=== PATIENT | male | born 1960 | race Caucasian/White ===

== ENCOUNTER 2016-09-01 13:55 | Emergency (ER) | payer OTHER ==
--- NOTE | 2016-09-01 14:54 | ER Document Report ---
ED Medical Screen (RME) - General Chief Complaint: Flank Pain Stated Complaint: RIGHT SIDE FLANK PAIN Mode of Arrival: Ambulatory Information source: Patient TRAVEL OUTSIDE OF THE [place] IN LAST 30 DAYS: No - HPI Onset: Last week Onset/Duration: Gradual Quality of pain: Achy, Burning Severity: Mild Associated Symptoms: denies: Chills, Dysuria, Fever, Nausea Exacerbated by: Denies Relieved by: Denies Similar symptoms previously: No Recently seen / treated by doctor: No - Related Data Smoking: Non-smoker Frequency of alcohol use: Occasional Drug Abuse: None Allergies/Adverse Reactions: Sulfa (Sulfonamide Antibiotics) Allergy (Verified 09/01/16 14:41) Past Medical History - General Information source: Patient - Social History Cigarette use (# per day): No Chew tobacco use (# tins/day): No Frequency of alcohol use: Occasional Drug Abuse: None Lives with: Spouse/Significant other Family history: None - Past Medical History Cardiac Medical History: Reports: Hx Hypertension Pulmonary Medical History: Reports: Hx Sleep Apnea Endocrine Medical History: Reports: Other - HYPOTESTOSTERONISM Renal/ Medical History: Denies: Hx Peritoneal Dialysis GI Medical History: Reports: Hx Diverticulitis Musculoskeltal Medical History: Reports Hx Arthritis Psychiatric Medical History: Denies: Hx Depression Past Surgical History: Reports: Hx Nose Surgery - Multiple sinus surgeries, Hx Oral Surgery - Multiple jaw surgeries to correct his bite - Immunizations Immunizations up to date: Yes Review of Systems - Review of Systems Constitutional: denies: Chills, Fever EENT: No symptoms reported Cardiovascular: No symptoms reported Respiratory: No symptoms reported Genitourinary: See HPI Physical Exam - Vital signs Vitals: Temp Pulse Resp BP Pulse Ox 98.3 F 65 18 125/69 98 09/01/16 13:59 09/01/16 13:59 09/01/16 13:59 09/01/16 13:59 09/01/16 13:59 Interpretation: Normal - General General appearance: Appears well, Alert In distress: None - HEENT Head: Normocephalic Eyes: Normal Ears: Normal Nasal: Normal Mouth/Lips: Normal Mucous membranes: Normal - Respiratory Respiratory status: No respiratory distress - Abdominal Inspection: Obese - Back Back: Normal. No: CVA tenderness Course - Vital Signs Vital signs: Temp Pulse Resp BP Pulse Ox 98.3 F 65 18 125/69 98 09/01/16 13:59 09/01/16 13:59 09/01/16 13:59 09/01/16 13:59 09/01/16 13:59
--- NOTE | 2016-09-01 15:52 | ER Document Report ---
ED General - General Chief Complaint: Flank Pain Stated Complaint: RIGHT SIDE FLANK PAIN Time seen by provider: 15:49 Mode of Arrival: Ambulatory Information source: Patient Notes: 55-year-old male with one-week history of intermittent right flank pain. He reports it is not specifically associated with movement exertion or eating. He reports occasional dysuria for the past week as well. He denies nausea, vomiting, cough, shortness breath, chest pain, abdominal pain, or hematuria. He reports no prior history of symptoms like this. He denies any history of injury. Denies any pain to the left back. Physical Exam: General: Alert, appears well. HEENT: Normocephalic. Atraumatic. PERRLA. Extraocular movements intact. Oropharynx clear. Neck: Supple. Non-tender. Respiratory: No respiratory distress. Clear and equal breath sounds bilaterally. Cardiovascular: Regular rate and rhythm. Abdominal: Normal Inspection. Soft, non-tender. No distension. Normal Bowel Sounds. normal male testes ongoing uncircumcised no discharge no lesions minimal discomfort palpation in the right perineal area but testicle and epididymis are nontender Back: Nontender to palpation palpation right CVA area localizes but doesn't reproduce patient's pain Extremities all is warm to plus pulses of cyanosis no edema Neurological speech clear mentation normal moves all extremities well Psychological: Normal affect. Normal Mood. Skin: Warm. Dry. Normal color. TRAVEL OUTSIDE OF THE [place] IN LAST 30 DAYS: No - Related Data Allergies/Adverse Reactions: Sulfa (Sulfonamide Antibiotics) Allergy (Verified 09/01/16 14:41) Past Medical History - General Information source: Patient - Social History Smoking Status: Never Smoker Cigarette use (# per day): No Chew tobacco use (# tins/day): No Frequency of alcohol use: Occasional Drug Abuse: None Lives with: Spouse/Significant other Family History: Other - Does not know patient adopted Patient has suicidal ideation: No Patient has homicidal ideation: No - Past Medical History Cardiac Medical History: Reports: Hx Hypertension Pulmonary Medical History: Reports: Hx Sleep Apnea Endocrine Medical History: Reports: Other - HYPOTESTOSTERONISM Renal/ Medical History: Denies: Hx Peritoneal Dialysis GI Medical History: Reports: Hx Diverticulitis Musculoskeltal Medical History: Reports Hx Arthritis Psychiatric Medical History: Denies: Hx Depression Past Surgical History: Reports: Hx Nose Surgery - Multiple sinus surgeries, Hx Oral Surgery - Multiple jaw surgeries to correct his bite, Other - Multiple hernia surgeries - Immunizations Immunizations up to date: Yes Review of Systems - Review of Systems Constitutional: denies: Chills, Fever EENT: denies: Ear pain, Nose pain, Throat pain Cardiovascular: denies: Chest pain, Dyspnea, Syncope Respiratory: denies: Cough, Short of breath Gastrointestinal: denies: Abdominal pain, Diarrhea, Nausea, Vomiting, Blood in vomit, Black stools, Rectal bleeding Genitourinary: See HPI Musculoskeletal: See HPI Skin: denies: Rash Hematologic/Lymphatic: denies: Swollen glands Neurological/Psychological: denies: Weakness, Numbness Physical Exam - Vital signs Vitals: Temp Pulse Resp BP Pulse Ox 98.3 F 65 18 125/69 98 09/01/16 13:59 09/01/16 13:59 09/01/16 13:59 09/01/16 13:59 09/01/16 13:59 Course - Re-evaluation Re-evalutation: 09/01/16 17:05 Reevaluation shows patient have a benign abdominal exam and has continued have intermittent pain in the right CVA area. On further discussion with the patient he reports that he had a sensation few days ago of discomfort in his right flank associated with the nurse have a bowel movement. He does reported in the past she's had 2 episodes of diverticulitis requiring admission with IV antibiotics for those presentations were associated with severe abdominal pain and he is not feeling that now. Given his CT findings I'm inclined to think that his back pain may actually be referred pain from a mild diverticulitis as a workup for kidney stones and UTIs negative and he has not reported any particular discomfort with exertion or movement. It is also not reproducible with movement or palpation. We did not obtain blood work on this patient I don't believe that that would change his management and is comfortable with discharge without that being done. We'll prescribe Cipro and Flagyl and ask him to follow with his physician at the [facility] within 1 week for recheck. I emphasized to the patient that should he begin to run a fever, have vomiting, or develop worse back pain or abdominal pain that this would indicate a failure of outpatient treatment and may require admission for IV antibiotics and he should return to emergency department. Also emphasized that this is a provisional diagnosis is a CT findings were equivocal however given his prior history I do believe that this warrants treatment with antibiotics - Vital Signs Vital signs: Temp Pulse Resp BP Pulse Ox 98.3 F 65 18 125/69 98 09/01/16 14:04 09/01/16 14:02 09/01/16 14:02 09/01/16 14:02 09/01/16 14:02 - Laboratory Laboratory results interpreted by me: Urinalysis negative - Diagnostic Test Radiology reviewed: Image reviewed, Reports reviewed Discharge - Discharge Clinical Impression: Diverticulitis Qualifiers: Diverticulitis site: unspecified part of intestinal tract Diverticulitis bleeding: without bleeding Diverticulitis complication: without perforation or abscess Qualified Code(s): K57.92 - Diverticulitis of intestine, part unspecified, without perforation or abscess without bleeding Condition: Stable Disposition: HOME, SELF-CARE Additional Instructions: Diverticulitis You have been diagnosed as having diverticulitis. This is an inflammation of a small pouch attached to the colon, called a diverticulum. Many of these small pouches can form on the colon as you get older. They are often caused by constipation. When inflamed or infected, symptoms arise -- usually abdominal pain, constipation or diarrhea, fever, and blood in the stool. Severe diverticulitis may require hospitalization. More mild cases are usually treated with antibiotics and clear liquid diet. As you improve, a diet low in residue (one which forms little stool) is prescribed. When you are better, you should eat a high-fiber diet. Stool softeners ( like Metamucil) are usually recommended. Call the doctor or go to the hospital if there is increasing pain, vomiting , high fever, large amounts of blood passed, or if bowel movements cease. Return to emergency department for temperature over 100.4, vomiting, worse pain in back or abdomen or other problems Prescriptions: RX: Ciprofloxacin HCl [Cipro 500 mg Tablet] 500 mg PO BID #28 tablet Metronidazole [Flagyl 500 mg Tablet] 500 mg PO Q6H #56 tablet Referrals: [facility] [Provider Group] - Follow up in 3-5 days
[2016-09-01 16:02] LABS: APPEARANCE,URINE CLEAR; BILIRUBIN,URINE NEGATIVE (NEGATIVE); GLUCOSE, URINE NEGATIVE (NEGATIVE); KETONES,URINE NEGATIVE (NEGATIVE); LEUKOCYTE ESTERASE,URINE NEGATIVE (NEGATIVE); NITRITE,URINE NEGATIVE (NEGATIVE); PROTEIN,URINE NEGATIVE (NEGATIVE); URINE SPECIFIC GRAVITY 1.005; UROBILINOGEN,URINE NEGATIVE mg/dL (<2.0)
[2016-09-01 17:19] VITALS: BP 129/64
== END 2016-09-01 17:19 | disposition home or self-care (01) ==
LOC: ER 13:55
DX: K57.92 Diverticulitis of intestine, part unspecified, without perforation or abscess without bleeding (principal); R30.0 Dysuria; R10.9 Unspecified abdominal pain; I10 Essential (primary) hypertension; Z88.2 Allergy status to sulfonamides
CPT/HCPCS: 76380; 81001; 99284

== ENCOUNTER 2016-11-20 21:21 | Inpatient (IN) | payer OTHER ==
[2016-11-20] MEDS ORDERED: NORMAL SALINE 1000 ML 1,000 ML IV PRN (22:21)
[2016-11-20] MEDS ORDERED: DIPHENHYDRAMINE HCL 50 MG/ML VIAL IV ONE (22:21)
[2016-11-20] MEDS ORDERED: ONDANSETRON HCL INJ/PF 4 MG/2 ML SDV IV ONE (22:21)
[2016-11-20] MEDS ORDERED: FAMOTIDINE INJ/PF 20 MG/2 ML SDV IV ONE (22:21)
[2016-11-20] MEDS ORDERED: METHYLPREDNISOLONE INJ 125 MG/2 ML SDV IV ONE (22:21)
--- NOTE | 2016-11-20 22:21 | ER Document Report ---
ED GI/ - General Chief Complaint: Vomiting/Diarrhea Stated Complaint: DIFFICULTY BREATHING/DIARRHEA/HIVES Time Seen by Provider: 11/20/16 22:14 Mode of Arrival: Ambulatory Information source: Patient TRAVEL OUTSIDE OF THE [place] IN LAST 30 DAYS: No - HPI Patient complains to provider of: Abdominal pain, Diarrhea Onset: This afternoon Timing/Duration: Sudden Quality of pain: Achy, Cramping Severity at maximum: Moderate Severity in ED: Moderate Associated symptoms: Diarrhea, Nausea, Vomiting Similar symptoms previously: No Recently seen / treated by doctor: No Notes: 11/21/16 05:30 Patient is a 56-year-old male with a history of hypertension and diverticulitis , who presents to the emergency room complaining of diffuse abdominal pain and cramping with nausea, vomiting and diarrhea that started around 1:00 in the morning, he is also developed an itchy erythematous raised rash, he reports pain on the right flank and the left lower quadrant, he denies a history of previous rash, however has been diagnosed with diverticulitis in the past, no sick contacts, no new foods, lotions, detergents, no new medications, no recent antibiotic - Related Data Allergies/Adverse Reactions: lisinopril Allergy (Severe, Verified 11/21/16 04:49) Angioneurotic Edema Sulfa (Sulfonamide Antibiotics) Allergy (Verified 11/20/16 21:41) Past Medical History - General Information source: Patient - Social History Smoking Status: Never Smoker Family History: Other - Does not know patient adopted - Past Medical History Cardiac Medical History: Reports: Hx Hypertension Pulmonary Medical History: Reports: Hx Sleep Apnea Renal/ Medical History: Denies: Hx Peritoneal Dialysis GI Medical History: Reports: Hx Diverticulitis Musculoskeltal Medical History: Reports Hx Arthritis Psychiatric Medical History: Denies: Hx Depression Past Surgical History: Reports: Hx Nose Surgery - Multiple sinus surgeries, Hx Oral Surgery - Multiple jaw surgeries to correct his bite, Other - Multiple hernia surgeries - Immunizations Immunizations up to date: Yes Review of Systems - Review of Systems Constitutional: No symptoms reported EENT: No symptoms reported Cardiovascular: No symptoms reported Respiratory: Short of breath Gastrointestinal: See HPI Genitourinary: No symptoms reported Male Genitourinary: No symptoms reported Musculoskeletal: No symptoms reported Skin: Rash Hematologic/Lymphatic: No symptoms reported Neurological/Psychological: No symptoms reported -: Yes All other systems reviewed and negative Physical Exam - Vital signs Vitals: Temp Pulse BP Pulse Ox 97.6 F 124 H 136/94 H 97 11/20/16 21:38 11/20/16 21:38 11/20/16 21:38 11/20/16 21:38 Interpretation: Tachycardic - General General appearance: Alert In distress: None - HEENT Head: Normocephalic, Atraumatic Eyes: Normal Conjunctiva: Normal Extraocular movements intact: Yes Eyelashes: Normal Pupils: PERRL Pharynx: Normal Neck: Normal - Respiratory Respiratory status: No respiratory distress Chest status: Nontender Breath sounds: Normal Chest palpation: Normal - Cardiovascular Rhythm: Regular, Tachycardia Heart sounds: Normal auscultation Murmur: No - Abdominal Inspection: Obese Distension: Distended Bowel sounds: Normal Tenderness: Nontender Organomegaly: No organomegaly - Back Back: Normal, Nontender - Extremities General upper extremity: Normal inspection, Nontender, Normal color, Normal ROM , Normal temperature General lower extremity: Normal inspection, Nontender, Normal color, Normal ROM , Normal temperature, Normal weight bearing. No: Gregor's sign - Neurological Neuro grossly intact: Yes Cognition: Normal Orientation: AAOx4 Frieda Coma Scale Eye Opening: Spontaneous [place] Coma Scale Verbal: Oriented Frieda Coma Scale Motor: Obeys Commands Frieda Coma Scale Total: 15 Speech: Normal Motor strength normal: LUE, RUE, LLE, RLE Sensory: Normal - Psychological Associated symptoms: Normal affect, Normal mood - Skin Skin Temperature: Warm Skin Moisture: Dry Skin Color: Normal Location of irregularity: Generalized Character of irregularity: Erythematous, Urticarial Course - Re-evaluation Re-evalutation: 11/21/16 05:34 Patient continues to have periods of tachycardia, as leukocytosis is significant , however I am unable to identify the source, as patient's chest x-ray is clear , CT of the abdomen and pelvis is without acute findings and urinalysis is without of an infection, therefore patient was discussed with the hospitalist who agrees to admit for further evaluation and treatment, he has been covered with broad-spectrum antibiotics at this point in time and has been given multiple liters of IV fluid - Vital Signs Vital signs: Temp Pulse Resp BP Pulse Ox 97.6 F 124 H 23 H 127/69 H 96 11/20/16 21:38 11/20/16 21:38 11/21/16 05:01 11/21/16 05:01 11/21/16 05:01 - Laboratory Result Diagrams: 11/20/16 23:00 11/20/16 23:00 Laboratory results interpreted by me: 11/20/16 11/20/16 11/21/16 23:00 23:00 02:17 WBC 21.1 H RBC 6.34 H Hgb 18.5 H Hct 55.5 H Seg Neuts % (Manual) 83 H Lymphocytes % (Manual) 8 L Abs Neuts (Manual) 18.1 H BUN 23 H Glucose 222 H Urine Protein 100 H - Diagnostic Test Radiology reviewed: Image reviewed, Reports reviewed Discharge - Discharge Clinical Impression: Nausea vomiting and diarrhea, Tachycardia, Urticaria Leukocytosis Qualifiers: Leukocytosis type: bandemia Qualified Code(s): D72.825 - Bandemia Condition: Fair Disposition: ADMITTED INPATIENT Admitting Provider: Hospitalist Unit Admitted: Telemetry
[2016-11-20 23:21] LABS: HEMATOCRIT 55.5 % (37.9-51.0); HEMOGLOBIN 18.5 g/dL (13.5-17.0); MEAN CORPUSCULAR HEMOGLOBIN 29.2 pg (27.0-33.4); MEAN CORPUSCULAR HGB CONC 33.4 g/dL (32.0-36.0); MEAN CORPUSCULAR VOLUME 88 fl (80-97); RED BLOOD COUNT 6.34 10^6/uL (4.35-5.55); RED CELL DISTRIBUTION WIDTH 13.9 % (11.5-14.0); WHITE BLOOD COUNT 21.1 10^3/uL (4.0-10.5)
[2016-11-20 23:30] LABS: ALANINE AMINOTRANSFERASE 37 U/L (21-72); ALBUMIN 4.3 g/dL (3.5-5.0); ALKALINE PHOSPHATASE 67 U/L (38-126); ANION GAP 16 (5-19); ASPARTATE AMINO TRANSFERASE 18 U/L (17-59); BILIRUBIN,DIRECT 0.3 mg/dL (0.0-0.4); BILIRUBIN,TOTAL 0.8 mg/dL (0.2-1.3); BLOOD UREA NITROGEN 23 mg/dL (7-20); CALCIUM 9.1 mg/dL (8.4-10.2); CARBON DIOXIDE 23 mmol/L (22-30); CHLORIDE 100 mmol/L (98-107); GLUCOSE 222 mg/dL (75-110); LIPASE 40.8 U/L (23-300); POTASSIUM 4.7 mmol/L (3.6-5.0); SODIUM 138.6 mmol/L (137-145); TOTAL PROTEIN 7.6 g/dL (6.3-8.2)
[2016-11-20 23:50] LABS: BAND NEUTROPHILS % (MANUAL) 3 % (3-5); BASOPHILS % (MANUAL) 0 % (0-2); EOSINOPHILS % (MANUAL) 2 % (0-6); LYMPHOCYTES % (MANUAL) 8 % (13-45); TOTAL CELLS COUNTED 100; TOXIC GRANULATION SLIGHT
[2016-11-20 23:51] LABS: RBC MORPHOLOGY COMMENT NORMO-CYTIC/CHROMIC
--- NOTE | 2016-11-21 00:16 | RADIOLOGY REPORT (SQ) ---
EXAM DESCRIPTION: CT ABD/PELVIS WITH IV ONLY COMPLETED DATE/TIME: 11/21/2016 12:05 am REASON FOR STUDY: LLQ pain COMPARISON: None. TECHNIQUE: CT scan of the abdomen and pelvis performed using helical scanning technique with dynamic intravenous contrast injection. No oral contrast. Images reviewed with lung, soft tissue, and bone windows. Reconstructed coronal and sagittal MPR images reviewed. Delayed images for evaluation of the urinary system also acquired. All images stored on PACS. All CT scanners at this facility use dose modulation, iterative reconstruction, and/or weight based d osing when appropriate to reduce radiation dose to as low as reasonably achievable (ALARA). [facility]: Dose Right [facility]: CareDose [facility]: Dose Right [facility]: Teradose 4D [facility]: [employer] CONTRAST TYPE AND DOSE: contrast/concentration: Isovue 370.00 mg/ml; Total Contrast Delivered: 100.0 ml; Total Saline Delivered: 70.0 ml RENAL FUNCTION: Creatinine 1.1 RADIATION DOSE: Up-to-date CT equipment and radiation dose reduction techniques were employed. CTDIv ol: 20.9 - 21.1 mGy. DLP: 2436 mGy-cm.. LIMITATIONS: None. FINDINGS: LOWER CHEST: No significant findings. No nodules or infiltrates. LIVER: Normal size. No masses. No dilated ducts. SPLEEN: Normal size. No focal lesions. PANCREAS: No masses. No significant calcifications. No adjacent inflammation or peripancreatic fluid collections. Pancreatic duct not dilated. GALLBLADDER: No identified stones by CT criteria. No inflammatory changes to suggest cholecystitis. ADRENAL GLANDS: No significant masses or asymmetry. RIGHT KIDNEY AND URETER: No solid masses. No significant calcifications. No hydronephrosis or hyd roureter. LEFT KIDNEY AND URETER: No solid masses. No significant calcifications. No hydronephrosis or hydr oureter. AORTA AND VESSELS: No aneurysm. No dissection. Renal arteries, SMA, celiac without stenosis. RETROPERITONEUM: No retroperitoneal adenopathy, hemorrhage or masses. BOWEL AND PERITONEAL CAVITY: Diverticulosis. No diverticulitis. APPENDIX: Normal. PELVIS: No mass. No free fluid. Normal bladder. ABDOMINAL WALL: No masses. No hernias. BONES: No significant or acute findings. OTHER: No other significant finding. IMPRESSION: NO SIGNIFICANT OR ACUTE FINDING IN THE ABDOMEN OR PELVIS ON CT SCAN WITH IV CONTRAST. TECHNICAL DOCUMENTATION: JOB ID: [id number] Quality ID # [id number]: Final reports with documentation of one or more dose reduction techniques (e.g., Au tomated exposure control, adjustment of the mA and/or kV according to patient size, use of iterative reconstruction technique) 2010 [employer]- All Rights Reserved
[2016-11-21] MEDS ORDERED: NORMAL SALINE 1000 ML 1,000 ML IV PRN ×2 (00:39→03:13)
[2016-11-21] MEDS ORDERED: METOCLOPRAMIDE HCL INJ/PF 10 MG/2 ML SDV IV ONE (00:39)
[2016-11-21] MEDS ORDERED: FAMOTIDINE INJ/PF 20 MG/2 ML SDV IV ONE (00:53)
[2016-11-21] MEDS ORDERED: DIPHENHYDRAMINE HCL 50 MG/ML VIAL IV ONE ×2 (00:53→04:51)
[2016-11-21] MEDS ORDERED: CEFTRIAXONE INJ 1000 MG VIAL IV ONE (02:34)
[2016-11-21 02:54] LABS: APPEARANCE,URINE SLIGHTLY-CLOUDY; BILIRUBIN,URINE NEGATIVE (NEGATIVE); GLUCOSE, URINE NEGATIVE (NEGATIVE); KETONES,URINE NEGATIVE (NEGATIVE); LEUKOCYTE ESTERASE,URINE NEGATIVE (NEGATIVE); NITRITE,URINE NEGATIVE (NEGATIVE); PROTEIN,URINE 100 mg/dL (NEGATIVE); UROBILINOGEN,URINE NEGATIVE mg/dL (<2.0)
[2016-11-21 02:55] LABS: URINE SPECIFIC GRAVITY > 1.060
--- NOTE | 2016-11-21 03:30 | RADIOLOGY REPORT (SQ) ---
EXAM DESCRIPTION: CHEST SINGLE VIEW COMPLETED DATE/TIME: 11/21/2016 3:12 am REASON FOR STUDY: fever COMPARISON: 02/05/2016 EXAM PARAMETERS: NUMBER OF VIEWS: One view. TECHNIQUE: Single frontal radiographic view of the chest acquired. RADIATION DOSE: NA LIMITATIONS: None. FINDINGS: LUNGS AND PLEURA: No opacities, masses or pneumothorax. No pleural effusion. MEDIASTINUM AND HILAR STRUCTURES: No masses. Contour normal. HEART AND VASCULAR STRUCTURES: Heart normal in size. Normal vasculature. BONES: No acute findings. HARDWARE: None in the chest. OTHER: No other significant finding. IMPRESSION: NO ACUTE RADIOGRAPHIC FINDING IN THE CHEST. TECHNICAL DOCUMENTATION: JOB ID: [id number]
[2016-11-21] MEDS ORDERED: ACETAMINOPHEN 325 MG TABLET PO PRN ×2 (04:51→14:39)
[2016-11-21] MEDS ORDERED: DIPHENHYDRAMINE HCL 50 MG/ML VIAL IV PRN (04:51)
[2016-11-21] MEDS ORDERED: IPRATROPIUM/ALBUTEROL 0.5-2.5 MG/3 ML AMPUL NEB PRN (04:51)
[2016-11-21] MEDS ORDERED: METHYLPREDNISOLONE INJ 125 MG/2 ML SDV IV ONE (04:51)
--- NOTE | 2016-11-21 05:04 | PDOC H&P ---
History of Present Illness Admission Date/PCP: 11/21/16 04:43 Patient complains of: Facial swelling diffuse rash nausea vomiting diarrhea History of Present Illness: EMMY QUINTERO is a 56 year old male with a past medical history of hypertension on lisinopril who was in his usual state of health until approximately 24 prior to admission patient had the insidious onset of abdominal pain nausea vomiting diarrhea without blood or fever he also developed facial swelling and a diffuse rash she described as hives, prompting to seek evaluation emergency room where he receives Solu-Medrol, Pepcid, Benadryl resulting in resolution of symptoms. His workup is notable for tachycardia, a white blood cell count of greater than 20,000 without fever but otherwise unremarkable including negative CT abdomen and pelvis. He is referred to the hospital for admission. Patient denies any suspect meals he takes lisinopril. Past Medical History Cardiac Medical History: Reports: Hypertension Pulmonary Medical History: Reports: Sleep Apnea GI Medical History: Reports: Diverticulitis Musculoskeltal Medical History: Reports: Arthritis Psychiatric Medical History: Denies: Depression Past Surgical History Past Surgical History: Reports: Other - Multiple hernia surgeries Social History Information Source: Patient Lives with: Family, Spouse/Significant other Smoking Status: Never Smoker Frequency of Alcohol Use: None Hx Recreational Drug Use: No Hx Prescription Drug Abuse: No Family History Family History: Other - Does not know patient adopted Parental Family History Reviewed: Yes Children Family History Reviewed: Yes Sibling(s) Family History Reviewed.: Yes Medication/Allergy Home Medications: Lisinopril 40 mg PO DAILY 08/29/14 Aspirin [Aspirin EC] 81 mg PO DAILY PRN #1 pkg 08/30/14 Azithromycin [Zithromax 250 mg Tablet] 500 mg PO DAILY #6 tab 06/24/15 Hydrocodone/Acetaminophen [[place] 5-325 mg Tablet] 1 tab PO Q6HP PRN #14 tablet 06/24/15 Prednisone [Deltasone 20 mg Tablet] 3 tab PO DAILY 3 Days 06/24/15 Ciprofloxacin HCl [Cipro 500 mg Tablet] 500 mg PO BID #28 tablet 09/01/16 Metronidazole [Flagyl 500 mg Tablet] 500 mg PO Q6H #56 tablet 09/01/16 Allergies/Adverse Reactions: lisinopril Allergy (Severe, Verified 11/21/16 04:49) Angioneurotic Edema Sulfa (Sulfonamide Antibiotics) Allergy (Verified 11/20/16 21:41) Review of Systems Constitutional: ABSENT: chills, fever(s), headache(s), weight gain, weight loss Eyes: ABSENT: visual disturbances Ears: ABSENT: hearing changes Cardiovascular: ABSENT: chest pain, dyspnea on exertion, edema, orthropnea, palpitations Respiratory: ABSENT: cough, hemoptysis Gastrointestinal: ABSENT: abdominal pain, constipation, diarrhea, hematemesis, hematochezia, nausea, vomiting Genitourinary: ABSENT: dysuria, hematuria Musculoskeletal: ABSENT: joint swelling Integumentary: ABSENT: rash, wounds Neurological: ABSENT: abnormal gait, abnormal speech, confusion, dizziness, focal weakness, syncope Psychiatric: ABSENT: anxiety, depression, homidical ideation, suicidal ideation Endocrine: ABSENT: cold intolerance, heat intolerance, polydipsia, polyuria Hematologic/Lymphatic: ABSENT: easy bleeding, easy bruising Physical Exam Vital Signs: Temp Pulse Resp BP Pulse Ox 97.6 F 124 H 25 H 125/78 95 11/20/16 21:38 11/20/16 21:38 11/21/16 03:01 11/21/16 03:01 11/21/16 03:01 General appearance: PRESENT: cooperative, mild distress, morbidly obese, well- developed, well-nourished Head exam: PRESENT: atraumatic, normocephalic Eye exam: PRESENT: conjunctiva pink, EOMI, PERRLA. ABSENT: scleral icterus Ear exam: PRESENT: normal external ear exam Mouth exam: PRESENT: moist, tongue midline, other - Oral facial swelling without tongue protrusion Neck exam: ABSENT: carotid bruit, JVD, lymphadenopathy, thyromegaly Respiratory exam: PRESENT: clear to auscultation maite. ABSENT: rales, rhonchi, wheezes Cardiovascular exam: PRESENT: RRR. ABSENT: diastolic murmur, rubs, systolic murmur Pulses: PRESENT: normal dorsalis pedis pul Vascular exam: PRESENT: normal capillary refill GI/Abdominal exam: PRESENT: normal bowel sounds, soft. ABSENT: distended, guarding, mass, organolmegaly, rebound, tenderness Rectal exam: PRESENT: deferred Extremities exam: PRESENT: full ROM. ABSENT: calf tenderness, clubbing, pedal edema Neurological exam: PRESENT: alert, awake, oriented to person, oriented to place , oriented to time, oriented to situation, CN II-XII grossly intact. ABSENT: motor sensory deficit Psychiatric exam: PRESENT: appropriate affect, normal mood. ABSENT: homicidal ideation, suicidal ideation Skin exam: PRESENT: dry, erythema, intact, urticaria, warm. ABSENT: cyanosis, rash, vesicles Results Impressions: Abdomen/Pelvis CT 11/20/16 22:20 IMPRESSION: NO SIGNIFICANT OR ACUTE FINDING IN THE ABDOMEN OR PELVIS ON CT SCAN WITH IV CONTRAST. Chest X-Ray 11/21/16 03:01 IMPRESSION: NO ACUTE RADIOGRAPHIC FINDING IN THE CHEST. Assessment & Plan - Diagnosis (1) Angioedema Is this a current diagnosis for this admission?: YesPlan: Atypical presentation of lisinopril induced angioedema including oral facial swelling diffuse hives nausea vomiting and diarrhea however literature describes case reports involving intestinal symptoms. Given his lack of more probable diagnosis he is admitted with Solu-Medrol, Benadryl, Pepcid and a allergy to lisinopril. (3) Nausea vomiting and diarrhea Is this a current diagnosis for this admission?: YesPlan: Secondary to JEANETTE inhibitor angioedema. Lisinopril allergy listed symptomatic management as above (4) KHRIS (obstructive sleep apnea) Is this a current diagnosis for this admission?: YesPlan: Complicating angioedema continue treatment as above in addition to CPAP - Time Time Spent: 50 to 70 Minutes - Inpatient Certification Medical Necessity: Need Close Monitoring Due to Risk of Patient Decompensation
[2016-11-21 05:35] LABS: ABSOLUTE LYMPHOCYTES (AUTO) 0.8 10^3/uL (0.5-4.7); ABSOLUTE MONOCYTES (AUTO) 0.3 10^3/uL (0.1-1.4); ABSOLUTE NEUT (AUTO) 15.3 10^3/uL (1.7-8.2); BASOPHILS % (AUTO) 0.1 % (0-2); EOSINOPHILS % (AUTO) 0.1 % (0-6); HEMATOCRIT 48.7 % (37.9-51.0); HGB HCT DIFFERENCE 0.5; LYMPHOCYTES % (AUTO) 5.2 % (13-45); MEAN CORPUSCULAR HEMOGLOBIN 29.3 pg (27.0-33.4); MEAN CORPUSCULAR HGB CONC 33.6 g/dL (32.0-36.0); MEAN CORPUSCULAR VOLUME 87 fl (80-97); MONOCYTES % (AUTO) 1.8 % (3-13); RED BLOOD COUNT 5.57 10^6/uL (4.35-5.55); SEGMENTED NEUTROPHILS % (AUTO) 92.8 % (42-78); WHITE BLOOD COUNT 16.4 10^3/uL (4.0-10.5)
[2016-11-21 05:36] LABS: HEMOGLOBIN 16.4 g/dL (13.5-17.0)
[2016-11-21] MEDS: HEPARIN SOD (PORCINE) 5,000 UNIT/ML 1 ML SYRINGE SUBCUT SCH ×3 (06:57→21:57)
[2016-11-21] MEDS ORDERED: DEXTROSE 50%-WATER 25 GM/50 ML DISP.SYRIN IV PRN ×2 (07:48)
[2016-11-21] MEDS ORDERED: INSULIN LISPRO 100 UNIT/ML 3 ML VIAL SUBCUT PRN (07:48)
[2016-11-21] MEDS ORDERED: DEXTROSE 40% GEL 15 GM TUBE PO PRN ×2 (07:48)
[2016-11-21] MEDS ORDERED: GLUCAGON,HUMAN RECOMB 1 MG INJ IM PRN (07:48)
[2016-11-21] MEDS ORDERED: LOSARTAN POTASSIUM 50 MG TABLET PO SCH (10:00)
[2016-11-21] MEDS ORDERED: DOCUSATE SODIUM 100 MG/10 ML UDC PO SCH (10:00)
--- NOTE | 2016-11-21 10:00 | Physician Advisory Note ---
Physician Advisor ProgressNote .: [facility], I have reviewed the medical record for this patient. Physician Advisor Statement: Status: Typically, angioedema would be most appropriately brought in as Outpt Obs initially, given frequent quick improvement w/this dx. This pt w/angioedema including GI sx, felt due to JEANETTE-I. Tx'd aggressively in ED 11/20 w/"multiple liters of IVF", IV Solumedrol/Benadryl/ Pepcid, IV abx. Attending ordered Solumedrol 125mg x1 more dose, ARB, prn Duonebs, only ice chips po, tele monitoring, VS q4h, O2 2L, f/u labs through 11/22. Pt has continued to have recurrent tachycardia & tachypnea so far this AM 11/21. Has continued facial edema & redness of face & back per AM nursing eval. Today's attending has now ordered continued Solumedrol q8hrs, indicating continued need for aggressive steroid tx. Pt bears especially close monitoring given already started on ARB, given continued sx from ACEI & risk for more of same rxn to ARB as to ACEI. Appropriate for Inpt status. CK
[2016-11-21] MEDS: FAMOTIDINE INJ/PF 20 MG/2 ML SDV IV SCH (10:07)
[2016-11-21] MEDS: DOCUSATE SODIUM 100 MG CAPSULE PO SCH ×2 (10:10→16:58)
--- NOTE | 2016-11-21 12:00 | PDOC PROGRESS REPORT ---
Subjective Progress Note for:: 11/21/16 Subjective:: Continues to have rash but it is slightly improved. Physical Exam Vital Signs: Temp Pulse Resp BP Pulse Ox 97.9 F 108 H 14 102/66 94 11/21/16 06:11 11/21/16 10:07 11/21/16 10:07 11/21/16 06:11 11/21/16 10:07 Intake & Output 11/20/16 11/21/16 11/22/16 06:59 06:59 06:59 Weight 126.7 kg General appearance: PRESENT: no acute distress Eye exam: PRESENT: conjunctiva pink. ABSENT: scleral icterus Mouth exam: PRESENT: moist, tongue midline Neck exam: ABSENT: JVD Respiratory exam: PRESENT: clear to auscultation maite. ABSENT: rales, rhonchi, wheezes Cardiovascular exam: PRESENT: RRR. ABSENT: diastolic murmur, rubs, systolic murmur GI/Abdominal exam: PRESENT: normal bowel sounds, soft. ABSENT: distended, guarding, mass, organolmegaly, rebound, tenderness Extremities exam: ABSENT: calf tenderness, clubbing, pedal edema Neurological exam: PRESENT: alert, awake, oriented to person, oriented to place , oriented to time, oriented to situation, CN II-XII grossly intact. ABSENT: motor sensory deficit Psychiatric exam: PRESENT: appropriate affect Skin exam: PRESENT: other - Scattered hives on his back. He also still has a significant amount of facial edema Results Laboratory Results: 11/21/16 05:10 11/21/16 05:10 WBC 16.4 H RBC 5.57 H Hgb 16.4 D Hct 48.7 MCV 87 MCH 29.3 MCHC 33.6 RDW 14.0 Plt Count 263 Seg Neutrophils % 92.8 H Lymphocytes % 5.2 L Monocytes % 1.8 L Eosinophils % 0.1 Basophils % 0.1 Absolute Neutrophils 15.3 H Absolute Lymphocytes 0.8 Absolute Monocytes 0.3 Absolute Eosinophils 0.0 Absolute Basophils 0.0 Impressions: Abdomen/Pelvis CT 11/20/16 22:20 IMPRESSION: NO SIGNIFICANT OR ACUTE FINDING IN THE ABDOMEN OR PELVIS ON CT SCAN WITH IV CONTRAST. Chest X-Ray 11/21/16 03:01 IMPRESSION: NO ACUTE RADIOGRAPHIC FINDING IN THE CHEST. Assessment & Plan - Diagnosis (1) Angioedema Is this a current diagnosis for this admission?: YesPlan: Secondary to JEANETTE inhibitors. Patient has no evidence of airway compromise at this time however he does have a significant amount of facial swelling requiring close monitoring because of continued swelling will continue with IV steroids for 24 more hours. (2) Leukocytosis Qualifiers: Leukocytosis type: bandemia Qualified Code(s): D72.825 - Bandemia Is this a current diagnosis for this admission?: YesPlan: Likely secondary to the underlying stress. Patient has no evidence for infection. (3) Nausea vomiting and diarrhea Is this a current diagnosis for this admission?: YesPlan: Likely is related to the angioedema. It has improved. (4) HTN (hypertension) Is this a current diagnosis for this admission?: YesPlan: We will continue to monitor his blood pressure and most likely will allow his outpatient physician to choose his next antihypertensive. (5) KHRIS (obstructive sleep apnea) Is this a current diagnosis for this admission?: YesPlan: Continue with CPAP nightly - Time Time Spent with patient: 15-24 minutes - Inpatient Certification Medical Necessity: Need Close Monitoring Due to Risk of Patient Decompensation
[2016-11-21] MEDS: METHYLPREDNISOLONE INJ 40 MG/1 ML SDV IV SCH ×2 (13:41→21:57)
[2016-11-22] MEDS: DIPHENHYDRAMINE HCL 50 MG/ML VIAL IV PRN ×2 (00:07→06:20)
[2016-11-22 01:11] VITALS: BP 122/56
[2016-11-22 04:57] LABS: ABSOLUTE LYMPHOCYTES (AUTO) 1.2 10^3/uL (0.5-4.7); ABSOLUTE MONOCYTES (AUTO) 0.8 10^3/uL (0.1-1.4); ABSOLUTE NEUT (AUTO) 16.2 10^3/uL (1.7-8.2); BASOPHILS % (AUTO) 0.1 % (0-2); EOSINOPHILS % (AUTO) 0.1 % (0-6); HEMATOCRIT 40.6 % (37.9-51.0); HGB HCT DIFFERENCE 0.5; LYMPHOCYTES % (AUTO) 6.7 % (13-45); MEAN CORPUSCULAR HEMOGLOBIN 29.7 pg (27.0-33.4); MEAN CORPUSCULAR HGB CONC 33.8 g/dL (32.0-36.0); MEAN CORPUSCULAR VOLUME 88 fl (80-97); MONOCYTES % (AUTO) 4.2 % (3-13); RED BLOOD COUNT 4.62 10^6/uL (4.35-5.55); RED CELL DISTRIBUTION WIDTH 14.1 % (11.5-14.0); SEGMENTED NEUTROPHILS % (AUTO) 88.9 % (42-78); WHITE BLOOD COUNT 18.2 10^3/uL (4.0-10.5)
[2016-11-22 04:58] LABS: HEMOGLOBIN 13.7 g/dL (13.5-17.0)
[2016-11-22] MEDS: HEPARIN SOD (PORCINE) 5,000 UNIT/ML 1 ML SYRINGE SUBCUT SCH (05:06)
[2016-11-22 05:07] LABS: ANION GAP 10 (5-19); BLOOD UREA NITROGEN 21 mg/dL (7-20); CALCIUM 8.6 mg/dL (8.4-10.2); CARBON DIOXIDE 25 mmol/L (22-30); CHLORIDE 103 mmol/L (98-107); CREATININE RESULT 0.88 mg/dL (0.52-1.25); GLUCOSE 170 mg/dL (75-110); POTASSIUM 5.3 mmol/L (3.6-5.0); SODIUM 137.9 mmol/L (137-145)
[2016-11-22] MEDS: METHYLPREDNISOLONE INJ 40 MG/1 ML SDV IV SCH (05:35)
[2016-11-22] MEDS ORDERED: SODIUM POLYSTYRENE SULFONATE 15 GM/60 ML PO ONE (09:23)
[2016-11-22] MEDS: DOCUSATE SODIUM 100 MG CAPSULE PO SCH (09:35)
[2016-11-22] MEDS: FAMOTIDINE INJ/PF 20 MG/2 ML SDV IV SCH (09:41)
--- NOTE | 2016-11-22 10:25 | PDOC DISCHARGE SUMMARY ---
General - Admit/Disc Date/PCP Admission Date/Primary Care Provider: 11/21/16 04:51 Discharge Date: 11/22/16 - Discharge Diagnosis (1) Angioedema Is this a current diagnosis for this admission?: Yes (2) Nausea vomiting and diarrhea Is this a current diagnosis for this admission?: Yes (3) HTN (hypertension) Is this a current diagnosis for this admission?: Yes (4) KHRIS (obstructive sleep apnea) Is this a current diagnosis for this admission?: Yes - Additional Information Discharge Diet: Cardiac Discharge Activity: Activity As Tolerated, Balance Activity w/Rest Home Medications: Fluticasone Propionate [Flonase Nasal Eldon 50 Mcg/Eldon 16 gm] 1 spray NAREB DAILYP PRN 11/21/16 Montelukast Sodium [Singulair 10 mg Tablet] 10 mg PO DAILYP PRN 11/21/16 Testosterone [Androgel] 1 applic TD DAILY 11/21/16 Cetirizine HCl [Zyrtec 10 mg Tablet] 1 tab PO DAILY #30 tablet 11/22/16 Diphenhydramine HCl [Benadryl] 25 mg PO Q6H PRN #40 capsule 11/22/16 Methylprednisolone [Medrol Dosepack (4 mg/Tab) 21 Tab/Dosepak] 4 mg PO ASDIR PRN #21 tab.ds.pk 11/22/16 Metoprolol Tartrate [Lopressor 50 mg Tablet] 50 mg PO Q12H #60 tablet 11/22/16 Additional Information: CBC and basic metabolic panel as outpatient with primary care physician in 1 week. Return to the emergency room if symptoms recur. History of Present Illness Patient complains of: Facial swelling and rash History of Present Illness: EMMY QUINTERO is a 56 year old male with a past medical history of hypertension on lisinopril who was in his usual state of health until approximately 24 prior to admission patient had the insidious onset of abdominal pain nausea vomiting diarrhea without blood or fever he also developed facial swelling and a diffuse rash she described as hives, prompting to seek evaluation emergency room where he receives Solu-Medrol, Pepcid, Benadryl resulting in resolution of symptoms. His workup is notable for tachycardia, a white blood cell count of greater than 20,000 without fever but otherwise unremarkable including negative CT abdomen and pelvis. He is referred to the hospital for admission. Patient denies any suspect meals he takes lisinopril. For details please refer to history and physical examination performed by the admitting physician. Hospital Course Hospital Course: The patient was admitted to telemetry. The patient was started on intravenous steroids and antihistamines. Antiemetics and analgesics were given. Stool for Clostridium difficile toxin was done and it was negative. Patient was given intravenous fluid as well and the patient's hematocrit noted to drop. Stool for occult blood was positive but patient reports no melena or hematochezia. Patient reported having serial colonoscopies done outpatient 3 times showing diverticulosis and internal hemorrhoids. In terms of the patient's symptoms of swelling and rash is resolved. Patient's diarrhea and abdominal discomfort improved and eventually resolved with resolution of rash and swelling. The patient improved, wanted to go to be discharged home and follow-up as an outpatient at the [facility]. For his blood pressure his JEANETTE inhibitor was discontinued and placed on ARB but developed hyperkalemia and therefore this was discontinued as well. He was given a dose of Kayexalate. He was advised to follow-up potassium level on an outpatient basis with primary care physician. Physical Exam Vital Signs: Temp Pulse Resp BP Pulse Ox 97.5 F 87 18 122/56 L 94 11/22/16 01:00 11/22/16 09:04 11/22/16 09:04 11/22/16 01:00 11/22/16 09:04 Intake & Output 11/21/16 11/22/16 11/23/16 06:59 06:59 06:59 Intake Total 1194 Balance 1194 Weight 126.7 kg 129.2 kg General appearance: PRESENT: no acute distress, cooperative, obese Head exam: PRESENT: normocephalic Eye exam: PRESENT: EOMI Mouth exam: PRESENT: moist, neck supple Neck exam: ABSENT: JVD Respiratory exam: PRESENT: clear to auscultation maite Cardiovascular exam: PRESENT: RRR GI/Abdominal exam: PRESENT: soft. ABSENT: distended - obese, tenderness Extremities exam: PRESENT: other - trace pre-tibial edema Neurological exam: PRESENT: alert, awake, oriented to person, oriented to place , oriented to time, oriented to situation Skin exam: PRESENT: dry, warm. ABSENT: cyanosis Results Laboratory Results: 11/22/16 04:22 11/22/16 04:22 11/21/16 11/21/16 11/22/16 20:00 20:00 04:22 WBC 18.2 H RBC 4.62 Hgb 13.7 D Hct 40.6 MCV 88 MCH 29.7 MCHC 33.8 RDW 14.1 H Plt Count 222 Seg Neutrophils % 88.9 H Lymphocytes % 6.7 L Monocytes % 4.2 Eosinophils % 0.1 Basophils % 0.1 Absolute Neutrophils 16.2 H Absolute Lymphocytes 1.2 Absolute Monocytes 0.8 Absolute Eosinophils 0.0 Absolute Basophils 0.0 Sodium Potassium Chloride Carbon Dioxide Anion Gap BUN Creatinine Est GFR ( Amer) Est GFR (Non-Af Amer) Glucose Calcium Stool Occult Blood POSITIVE Stool for White Cells FEW H 11/22/16 04:22 WBC RBC Hgb Hct MCV MCH MCHC RDW Plt Count Seg Neutrophils % Lymphocytes % Monocytes % Eosinophils % Basophils % Absolute Neutrophils Absolute Lymphocytes Absolute Monocytes Absolute Eosinophils Absolute Basophils Sodium 137.9 Potassium 5.3 H Chloride 103 Carbon Dioxide 25 Anion Gap 10 BUN 21 H Creatinine 0.88 Est GFR ( Amer) > 60 Est GFR (Non-Af Amer) > 60 Glucose 170 H Calcium 8.6 Stool Occult Blood Stool for White Cells Impressions: Abdomen/Pelvis CT 11/20/16 22:20 IMPRESSION: NO SIGNIFICANT OR ACUTE FINDING IN THE ABDOMEN OR PELVIS ON CT SCAN WITH IV CONTRAST. Chest X-Ray 11/21/16 03:01 IMPRESSION: NO ACUTE RADIOGRAPHIC FINDING IN THE CHEST. Qualifiers PATEINT BEING DISCHARGED WITH ANY OF THE FOLLOWING DIAGNOSIS?: No Plan Discharge Plan: Follow-up with primary care physician in 1 week. Time Spent: Less than 30 Minutes
== END 2016-11-22 11:07 | disposition home or self-care (01) | DRG 916 ==
LOC: ER 21:21 → EH 11-21 04:43 → UNDOADMIN 11-21 04:43 → EH 11-21 04:51 → 5 11-21 06:10
PROVIDERS: ADMIT Internal Medicine; ATTEND Internal Medicine
DX: T78.3XXA Angioneurotic edema, initial encounter (principal); K57.92 Diverticulitis of intestine, part unspecified, without perforation or abscess without bleeding; I10 Essential (primary) hypertension; E87.5 Hyperkalemia; R00.0 Tachycardia, unspecified; R11.2 Nausea with vomiting, unspecified; R19.7 Diarrhea, unspecified; G47.33 Obstructive sleep apnea (adult) (pediatric); T88.7XXA Unspecified adverse effect of drug or medicament, initial encounter; T46.4X5A Adverse effect of angiotensin-converting-enzyme inhibitors, initial encounter
CPT/HCPCS: 36415; 71010; 74177; 80048; 80053; 81001; 82272; 82962; 83605; 83690; 85025; 87040; 87045; 87205; 87493; 89055; 96361; 96365; 96375; 96376; 99285; J0696; J1200; J1644; J2405; J2765; J2920; J2930; J7030; S0028

== ENCOUNTER 2017-04-17 15:58 | Emergency (ER) | payer OTHER ==
[2017-04-17 17:16] LABS: APPEARANCE,URINE CLEAR; BILIRUBIN,URINE NEGATIVE (NEGATIVE); GLUCOSE, URINE NEGATIVE (NEGATIVE); KETONES,URINE NEGATIVE (NEGATIVE); LEUKOCYTE ESTERASE,URINE NEGATIVE (NEGATIVE); NITRITE,URINE NEGATIVE (NEGATIVE); PROTEIN,URINE NEGATIVE (NEGATIVE); URINE SPECIFIC GRAVITY 1.017
[2017-04-17 17:48] LABS: ABSOLUTE BASOPHILS # (AUTO) 0.1 10^3/uL (0.0-0.2); ABSOLUTE EOSINOPHILS # (AUTO) 0.3 10^3/uL (0.0-0.6); ABSOLUTE LYMPHOCYTES (AUTO) 2.6 10^3/uL (0.5-4.7); ABSOLUTE MONOCYTES (AUTO) 0.6 10^3/uL (0.1-1.4); ABSOLUTE NEUT (AUTO) 4.1 10^3/uL (1.7-8.2); BASOPHILS % (AUTO) 1.3 % (0-2); EOSINOPHILS % (AUTO) 3.6 % (0-6); HEMATOCRIT 41.7 % (37.9-51.0); HEMOGLOBIN 14.7 g/dL (13.5-17.0); HGB HCT DIFFERENCE 2.4; LYMPHOCYTES % (AUTO) 33.7 % (13-45); MEAN CORPUSCULAR HEMOGLOBIN 29.4 pg (27.0-33.4); MEAN CORPUSCULAR HGB CONC 35.1 g/dL (32.0-36.0); MEAN CORPUSCULAR VOLUME 84 fl (80-97); RED BLOOD COUNT 4.99 10^6/uL (4.35-5.55); RED CELL DISTRIBUTION WIDTH 14.3 % (11.5-14.0); SEGMENTED NEUTROPHILS % (AUTO) 53.4 % (42-78); WHITE BLOOD COUNT 7.6 10^3/uL (4.0-10.5)
[2017-04-17 18:05] LABS: ALANINE AMINOTRANSFERASE 39 U/L (21-72); ALKALINE PHOSPHATASE 51 U/L (38-126); ANION GAP 11 (5-19); ASPARTATE AMINO TRANSFERASE 19 U/L (17-59); BILIRUBIN,DIRECT 0.1 mg/dL (0.0-0.4); BILIRUBIN,TOTAL 0.3 mg/dL (0.2-1.3); BLOOD UREA NITROGEN 18 mg/dL (7-20); CALCIUM 9.2 mg/dL (8.4-10.2); CARBON DIOXIDE 27 mmol/L (22-30); CHLORIDE 103 mmol/L (98-107); CREATININE RESULT 0.93 mg/dL (0.52-1.25); GLUCOSE 148 mg/dL (75-110); POTASSIUM 4.1 mmol/L (3.6-5.0); SODIUM 141.2 mmol/L (137-145); TOTAL PROTEIN 6.6 g/dL (6.3-8.2)
[2017-04-17] MEDS ORDERED: KETOROLAC TROMETHAMINE 60 MG/2 ML SDV IM ONE (20:48)
[2017-04-17] MEDS ORDERED: LIDOCAINE 5% (700 MG) TRANSDERMAL ADH..PATCH TP ONE (20:48)
--- NOTE | 2017-04-17 20:51 | ER Document Report ---
ED General - General Chief Complaint: Flank Pain Stated Complaint: RIGH SIDE ABDOMINAL PAIN Time Seen by Provider: 04/17/17 16:51 Notes: Patient is a 56-year-old male who presents with 6-8 months of intermittent right flank and right lower rib pain. Patient states that the symptoms are intermittent in nature but nothing seems to trigger the pain other than certain positional changes. He notes that he has not tried anything for relief of the pain. States he has had extensive evaluations for this pain including multiple CT scans of his abdomen pelvis as well as a colonoscopy and endoscopy apparently all of which have been unremarkable. Patient states that he was treated empirically for H pylori which did not improve his symptoms. At time of assessment the patient complains of a mild, dull, constant, throbbing pain to the right lower rib space. He denies any shortness of breath, pleuritic pain , abdominal pain, vomiting, diarrhea, chest pain, or syncope. TRAVEL OUTSIDE OF THE [place] IN LAST 30 DAYS: No - Related Data Allergies/Adverse Reactions: lisinopril Allergy (Severe, Verified 04/17/17 16:01) Angioneurotic Edema Sulfa (Sulfonamide Antibiotics) Allergy (Verified 04/17/17 16:01) Past Medical History - General Information source: Patient - Social History Smoking Status: Former Smoker Chew tobacco use (# tins/day): No Frequency of alcohol use: None Drug Abuse: None Lives with: Spouse/Significant other Family History: Other - Does not know patient adopted Patient has suicidal ideation: No Patient has homicidal ideation: No - Past Medical History Cardiac Medical History: Reports: Hx Hypertension Pulmonary Medical History: Reports: Hx Sleep Apnea Renal/ Medical History: Denies: Hx Peritoneal Dialysis GI Medical History: Reports: Hx Diverticulitis Musculoskeltal Medical History: Reports Hx Arthritis Psychiatric Medical History: Denies: Hx Depression Past Surgical History: Reports: Hx Nose Surgery - Multiple sinus surgeries, Hx Oral Surgery - Multiple jaw surgeries to correct his bite, Other - Multiple hernia surgeries - Immunizations Immunizations up to date: Yes Review of Systems - Review of Systems Notes: Constitutional: Negative for fever. HENT: Negative for sore throat. Eyes: Negative for visual changes. Cardiovascular: Negative for chest pain. Respiratory: Negative for shortness of breath. Gastrointestinal: Positive for right flank pain Genitourinary: Negative for dysuria. Musculoskeletal: Negative for back pain. Skin: Negative for rash. Neurological: Negative for headaches, weakness or numbness. 10 point ROS negative except as marked above and in HPI. Physical Exam - Vital signs Vitals: Temp Pulse Resp BP Pulse Ox 99.1 F 78 18 158/85 H 98 04/17/17 16:06 04/17/17 16:06 04/17/17 16:06 04/17/17 16:06 04/17/17 16:06 Interpretation: Hypertensive Notes: PHYSICAL EXAMINATION: GENERAL: Well-appearing, well-nourished and in no acute distress. HEAD: Atraumatic, normocephalic. EYES: Pupils equal round and reactive to light, extraocular movements intact, sclera anicteric, conjunctiva are normal. ENT: nares patent, oropharynx clear without exudates. Moist mucous membranes. NECK: Normal range of motion, supple without lymphadenopathy LUNGS: Breath sounds clear to auscultation bilaterally and equal. No wheezes rales or rhonchi. HEART: Regular rate and rhythm without murmurs ABDOMEN: Soft, nontender, normoactive bowel sounds. No guarding, no rebound. No masses appreciated. Back: Pain on palpation of the right mid lower ribs. No distinct CVA tenderness. EXTREMITIES: Normal range of motion, no pitting or edema. No cyanosis. NEUROLOGICAL: No focal neurological deficits. Moves all extremities spontaneously and on command. PSYCH: Normal mood, normal affect. SKIN: Warm, Dry, normal turgor, no rashes or lesions noted. Course - Re-evaluation Re-evalutation: 04/17/17 20:49 Patient presents with 6-8 months of right lower, posterior rib pain. Patient has had an extensive evaluation for this pain including multiple CTs the abdomen and pelvis, colonoscopy, endoscopy, all of which have been unremarkable. Labs here today are again unremarkable. There is no evidence of pyonephritis or nephrolithiasis on urinalysis and patient's clinical history is not consistent with either of these diagnoses. On evaluation, he has focal tenderness to the right posterior, middle lower rib spaces and his pain is worsened with palpation of the area as well as leaning in certain ways in the bed. This is highly suggestive of a musculoskeletal component and he notes that in the remote past he had multiple rib fractures in the right lower ribs. I have a very low clinical suspicion for any acute intra-abdominal pathology again given clinical history and the absence of any focal abdominal pain by complaint or exam. There is no pleuritic component to his pain he denies any shortness of breath to suggest an acute pulmonary embolus. His Wells score is 0. Will obtain chest x-ray to evaluate for any evidence of an acute infiltrate or acute rib fracture. It is unremarkable begin empiric treatment for musculoskeletal irritation and recommend close outpatient follow-up. 04/17/17 22:21 Chest x-ray is clear. Patient's pain is completely resolved with a Lidoderm patch in the area. At this time will discharge with return precautions and follow-up recommendations. Verbal discharge instructions given a the bedside and opportunity for questions given. Medication warnings reviewed. Patient is in agreement with this plan and has verbalized understanding of return precautions and the need for primary care follow-up in the next 24-72 hours. - Vital Signs Vital signs: Temp Pulse Resp BP Pulse Ox 98.0 F 66 18 148/84 H 97 04/17/17 22:28 04/17/17 22:28 04/17/17 22:28 04/17/17 22:28 04/17/17 22:28 - Laboratory Result Diagrams: 04/17/17 17:37 04/17/17 17:37 Laboratory results interpreted by me: 04/17/17 04/17/17 04/17/17 16:57 17:37 17:37 RDW 14.3 H Glucose 148 H Urine Urobilinogen 2.0 H - Diagnostic Test Radiology reviewed: Image reviewed, Reports reviewed Radiology results interpreted by me: 04/18/17 00:24 Chest x-ray: No acute infiltrate, rib fractures, or pneumothorax Discharge - Discharge Clinical Impression: Right lower rib pain, Right flank pain Condition: Good Disposition: HOME, SELF-CARE Additional Instructions: Your chest wall pain is due to irritation of your rib and back muscles.. It is very important that you continue to take purposeful deep breaths. For your pain : Apply the topical Voltaren gel to the affected area up to 3 times daily as needed for pain. You may also apply local lidocaine to the area per bottle instructions. There is a product sold [id number] called "Aspercreme with lidocaine" that you can use for this purpose. Please follow-up with your primary care doctor in the next 2-3 days. Return to the emergency department immediately if you develop worsening shortness of breath, increased pain, begin coughing blood, pass out, or have any other symptoms that are worrisome to you. Prescriptions: Diclofenac Sodium [Voltaren] 100 gm TP TID #100 gel..gram. Referrals: SANIA XIONG MD [Primary Care Provider] - Follow up as needed
--- NOTE | 2017-04-17 21:15 | RADIOLOGY REPORT (SQ) ---
EXAM DESCRIPTION: CHEST PA/LAT COMPLETED DATE/TIME: 04/17/2017 9:01 pm REASON FOR STUDY: right low rib pain COMPARISON: 11/21/2016. EXAM PARAMETERS: NUMBER OF VIEWS: two views TECHNIQUE: Digital Frontal and Lateral radiographic views of the chest acquired. RADIATION DOSE: NA LIMITATIONS: none FINDINGS: LUNGS AND PLEURA: No opacities, masses or pneumothorax. No pleural effusion. MEDIASTINUM AND HILAR STRUCTURES: No masses or contour abnormalities. HEART AND VASCULAR STRUCTURES: Heart normal size. No evidence for failure. BONES: No acute findings. HARDWARE: None in the chest. OTHER: No other significant finding. IMPRESSION: NO SIGNIFICANT RADIOGRAPHIC FINDING IN THE CHEST. TECHNICAL DOCUMENTATION: JOB ID: [id number] [employer]- All Rights Reserved
[2017-04-17 22:31] VITALS: BP 148/84
== END 2017-04-17 22:30 | disposition home or self-care (01) ==
LOC: ER 15:58
DX: R07.81 Pleurodynia (principal); R10.9 Unspecified abdominal pain; Z87.891 Personal history of nicotine dependence
CPT/HCPCS: 99284; 96372; 36415; 85025; 80053; 81001; 71020; J1885

== ENCOUNTER 2018-06-25 16:28 | Emergency (ER) | payer OTHER ==
--- NOTE | 2018-06-25 20:08 | ER Document Report ---
ED Medical Screen (RME) - General Chief Complaint: Abdominal Pain Stated Complaint: ABDOMINAL PAIN Time Seen by Provider: 06/25/18 19:58 Primary Care Provider: SANIA XIONG MD [Primary Care Provider] - Follow up as needed Notes: 57-year-old male with a chief complaint of left lower quadrant pain, more noticeable over the past 3-4 days, denies nausea or vomiting, denies fever or chills. He does report some bright red blood in his stools but states this is normal for him, he has a history of both hemorrhoids and diverticulosis. He has had inguinal and ventral hernia repairs but does not think this is the problem. TRAVEL OUTSIDE OF THE [place] IN LAST 30 DAYS: No - Related Data Allergies/Adverse Reactions: lisinopril Allergy (Severe, Verified 04/17/17 16:01) Angioneurotic Edema Sulfa (Sulfonamide Antibiotics) Allergy (Verified 04/17/17 16:01) Past Medical History - Social History Chew tobacco use (# tins/day): No Frequency of alcohol use: former Drug Abuse: None Family history: None - Past Medical History Cardiac Medical History: Reports: Hx Hypertension Pulmonary Medical History: Reports: Hx Sleep Apnea Renal/ Medical History: Denies: Hx Peritoneal Dialysis GI Medical History: Reports: Hx Diverticulitis Musculoskeltal Medical History: Reports Hx Arthritis Psychiatric Medical History: Denies: Hx Depression Past Surgical History: Reports: Hx Nose Surgery - Multiple sinus surgeries, Hx Oral Surgery - Multiple jaw surgeries to correct his bite, Other - Multiple hernia surgeries - Immunizations Immunizations up to date: Yes Physical Exam - Vital signs Vitals: Temp Pulse Resp BP Pulse Ox 99.5 F 87 16 159/98 H 97 06/25/18 16:37 06/25/18 16:37 06/25/18 16:37 06/25/18 16:37 06/25/18 16:37 - Abdominal Tenderness: Tender - Tender the left abdomen generally, slightly more so in the lower abdomen, no guarding or rigidity, no incarcerated hernia noted Course - Re-evaluation Re-evalutation: I have greeted and performed a rapid initial assessment of this patient. A comprehensive ED assessment and evaluation of the patient, analysis of test results and completion of the medical decision making process will be conducted by additional ED providers. - Vital Signs Vital signs: Temp Pulse Resp BP Pulse Ox 99.5 F 87 16 159/98 H 97 06/25/18 16:37 06/25/18 16:37 06/25/18 16:37 06/25/18 16:37 06/25/18 16:37 Doctor's Discharge - Discharge Referrals: SANIA XIONG MD [Primary Care Provider] - Follow up as needed
[2018-06-25 20:58] LABS: ABSOLUTE BASOPHILS # (AUTO) 0.1 10^3/uL (0.0-0.2); ABSOLUTE EOSINOPHILS # (AUTO) 0.3 10^3/uL (0.0-0.6); ABSOLUTE MONOCYTES (AUTO) 0.9 10^3/uL (0.1-1.4); ABSOLUTE NEUT (AUTO) 6.1 10^3/uL (1.7-8.2); BASOPHILS % (AUTO) 0.9 % (0-2); EOSINOPHILS % (AUTO) 2.5 % (0-6); HEMATOCRIT 41.7 % (37.9-51.0); HEMOGLOBIN 14.2 g/dL (13.5-17.0); LYMPHOCYTES % (AUTO) 28.7 % (13-45); MEAN CORPUSCULAR HEMOGLOBIN 28.2 pg (27.0-33.4); MEAN CORPUSCULAR HGB CONC 34.1 g/dL (32.0-36.0); MEAN CORPUSCULAR VOLUME 83 fl (80-97); MONOCYTES % (AUTO) 8.8 % (3-13); PLATELET COUNT 262 10^3/uL (150-450); RED BLOOD COUNT 5.04 10^6/uL (4.35-5.55); RED CELL DISTRIBUTION WIDTH 14.8 % (11.5-14.0); SEGMENTED NEUTROPHILS % (AUTO) 59.1 % (42-78); TOTAL CELLS COUNTED % (AUTO) 100 %; WHITE BLOOD COUNT 10.4 10^3/uL (4.0-10.5)
[2018-06-25 21:11] LABS: ALANINE AMINOTRANSFERASE 21 U/L (21-72); ALBUMIN 4.1 g/dL (3.5-5.0); ALKALINE PHOSPHATASE 55 U/L (38-126); ANION GAP 11 (5-19); ASPARTATE AMINO TRANSFERASE 15 U/L (17-59); BILIRUBIN,DIRECT 0.2 mg/dL (0.0-0.4); BILIRUBIN,TOTAL 0.7 mg/dL (0.2-1.3); BLOOD UREA NITROGEN 20 mg/dL (7-20); CARBON DIOXIDE 29 mmol/L (22-30); CHLORIDE 99 mmol/L (98-107); GLUCOSE 102 mg/dL (75-110); LIPASE 34.2 U/L (23-300); POTASSIUM 4.4 mmol/L (3.6-5.0); SODIUM 139.1 mmol/L (137-145); TOTAL PROTEIN 7.1 g/dL (6.3-8.2)
[2018-06-25 21:37] LABS: APPEARANCE,URINE CLEAR; BILIRUBIN,URINE NEGATIVE (NEGATIVE); COLOR,URINE YELLOW; GLUCOSE, URINE NEGATIVE (NEGATIVE); KETONES,URINE NEGATIVE (NEGATIVE); LEUKOCYTE ESTERASE,URINE NEGATIVE (NEGATIVE); NITRITE,URINE NEGATIVE (NEGATIVE); PROTEIN,URINE NEGATIVE (NEGATIVE); URINE SPECIFIC GRAVITY 1.024; UROBILINOGEN,URINE NEGATIVE mg/dL (<2.0)
[2018-06-25 22:16] VITALS: BP 137/77
--- NOTE | 2018-06-25 23:48 | RADIOLOGY REPORT (SQ) ---
CLINICAL HISTORY: LLQ pain, bloody stools COMPARISON: None. TECHNIQUE: CT ABDOMEN PELVIS WITH IV CONTRAST on 06/25/2018 12:00 AM [employer] This exam was performed according to our departmental dose-optimization program, which includes automated exposure control, adjustment of the mA and/or kV according to patient size and/or use of iterative reconstruction technique. FINDINGS: Lower lungs are clear. Abdomen: The liver is normal in appearance. There is no biliary dilatation. Gallbladder is normal in appearance. There is a small duodenal diverticulum. The pancreas and spleen are normal in appearance. The adrenal glands and kidneys are unremarkable. Abdominal aorta is normal in course and caliber without aneurysm. There is no free air. There is no retroperitoneal adenopathy. Pelvis: There is moderate thickening of much of the mid and proximal sigmoid colon. There is extensive inflammation surrounding the proximal sigmoid colon. Urinary bladder is unremarkable. There is no free fluid. Appendix is normal. Skeleton: There are no acute osseous findings. No suspicious bony lesions. IMPRESSION: Probable proximal sigmoid colon diverticulitis. Consider colonoscopy to exclude underlying neoplasm.
[2018-06-26] MEDS ORDERED: CIPROFLOXACIN HCL 500 MG TABLET PO ONE (00:04)
[2018-06-26] MEDS ORDERED: METRONIDAZOLE 500 MG TABLET PO ONE (00:04)
--- NOTE | 2018-06-26 00:05 | ER Document Report ---
ED GI/ - General Chief Complaint: Abdominal Pain Stated Complaint: ABDOMINAL PAIN Time Seen by Provider: 06/25/18 19:58 Primary Care Provider: SANIA XIONG MD [Primary Care Provider] - Follow up as needed Notes: 57-year-old male to emergency department for evaluation of possible diverticulitis. Patient notes that he has diverticular disease. Has had diverticulitis several times. Patient thinks that this is more likely diverticulitis. [facility] Patient denies any fever, chills, sweats. Pain has been getting worse in the left lower quadrant but not severe. Not requiring pain medication. Denies any other symptoms at this time. TRAVEL OUTSIDE OF THE [place] IN LAST 30 DAYS: No - HPI Patient complains to provider of: Abdominal pain Timing/Duration: Gradual Quality of pain: Achy Severity at maximum: Mild Severity in ED: Mild Pain Level: 1 Location: [facility] - Related Data Allergies/Adverse Reactions: lisinopril Allergy (Severe, Verified 04/17/17 16:01) Angioneurotic Edema Sulfa (Sulfonamide Antibiotics) Allergy (Verified 04/17/17 16:01) Past Medical History - General Information source: Patient - Social History Smoking Status: Never Smoker Chew tobacco use (# tins/day): No Frequency of alcohol use: former Drug Abuse: None Lives with: Family Family History: Reviewed & Not Pertinent, Other - Does not know patient adopted Patient has suicidal ideation: No Patient has homicidal ideation: No - Past Medical History Cardiac Medical History: Reports: Hx Hypertension Pulmonary Medical History: Reports: Hx Sleep Apnea Renal/ Medical History: Denies: Hx Peritoneal Dialysis GI Medical History: Reports: Hx Diverticulitis Musculoskeletal Medical History: Reports Hx Arthritis Psychiatric Medical History: Denies: Hx Depression Past Surgical History: Reports: Hx Nose Surgery - Multiple sinus surgeries, Hx Oral Surgery - Multiple jaw surgeries to correct his bite, Other - Multiple hernia surgeries - Immunizations Immunizations up to date: Yes Review of Systems - Review of Systems Notes: Constitutional: denies: Chills, Diaphoresis, Fever, Malaise, Weakness EENT: denies: Eye discharge, Blurred vision, Tearing, Double vision, Nose congestion, Nose discharge, Throat swelling, Mouth pain Cardiovascular: denies: Palpitations, Heart racing, Orthopnea, Dyspnea, Chest pain Respiratory: denies: Cough, Hurts to breathe, Wheezing, Shortness of breath Gastrointestinal: denies: Diarrhea, Nausea, Vomiting, Black stools, positive for left lower quadrant abdominal pain and occasional blood in the stool Genitourinary: denies: Burning, Dysuria, Discharge, Frequency, Flank pain, Hematuria Musculoskeletal: denies: Joint pain, Joint swelling, Muscle pain, Muscle stiffness, back pain Hematologic/Lymphatic: denies: Anemia, Easy bleeding, Easy bruising, Blood clots Neurological/Psychological: denies: Confusion, Dementia, Depression, Loss of consciousness Skin: No lesions, no masses, no skin breakdown, no abscesses Physical Exam - Vital signs Vitals: Temp Pulse Resp BP Pulse Ox 99.5 F 87 16 159/98 H 97 06/25/18 16:37 06/25/18 16:37 06/25/18 16:37 06/25/18 16:37 06/25/18 16:37 Interpretation: Normal - General General appearance: Appears well, Alert - HEENT Head: Normocephalic, Atraumatic Eyes: Normal Pupils: PERRL - Respiratory Respiratory status: No respiratory distress Chest status: Nontender Breath sounds: Normal Chest palpation: Normal - Cardiovascular Rhythm: Regular Heart sounds: Normal auscultation Murmur: No - Abdominal Inspection: Normal Distension: No distension Bowel sounds: Normal Tenderness: Tender - Mild tenderness to palpation in the left lower quadrant but no guarding or rebound. Organomegaly: No organomegaly - Back Back: Normal, Nontender - Extremities General upper extremity: Normal inspection, Nontender, Normal color, Normal ROM, Normal temperature General lower extremity: Normal inspection, Nontender, Normal color, Normal ROM, Normal temperature, Normal weight bearing. No: Gregor's sign - Neurological Neuro grossly intact: Yes Cognition: Normal Orientation: AAOx4 Frieda Coma Scale Eye Opening: Spontaneous Aurora Coma Scale Verbal: Oriented Frieda Coma Scale Motor: Obeys Commands Frieda Coma Scale Total: 15 Speech: Normal Motor strength normal: LUE, RUE, LLE, RLE Sensory: Normal - Psychological Associated symptoms: Normal affect, Normal mood - Skin Skin Temperature: Warm Skin Moisture: Dry Skin Color: Normal Course - Re-evaluation Re-evalutation: 06/26/18 06:25 Laboratory 06/25/18 06/25/18 06/25/18 20:41 20:41 20:44 WBC 10.4 RBC 5.04 Hgb 14.2 Hct 41.7 MCV 83 MCH 28.2 MCHC 34.1 RDW 14.8 H Plt Count 262 Seg Neutrophils % 59.1 Lymphocytes % 28.7 Monocytes % 8.8 Eosinophils % 2.5 Basophils % 0.9 Absolute Neutrophils 6.1 Absolute Lymphocytes 3.0 Absolute Monocytes 0.9 Absolute Eosinophils 0.3 Absolute Basophils 0.1 Sodium 139.1 Potassium 4.4 Chloride 99 Carbon Dioxide 29 Anion Gap 11 BUN 20 Creatinine 1.22 Est GFR ( Amer) > 60 Est GFR (Non-Af Amer) > 60 Glucose 102 Calcium 9.0 Total Bilirubin 0.7 Direct Bilirubin 0.2 Neonat Total Bilirubin Not Reportable Neonat Direct Bilirubin Not Reportable Neonat Indirect Bili Not Reportable AST 15 L ALT 21 Alkaline Phosphatase 55 Total Protein 7.1 Albumin 4.1 Lipase 34.2 Urine Color YELLOW Urine Appearance CLEAR Urine pH 5.0 Ur Specific Dilley 1.024 Urine Protein NEGATIVE Urine Glucose (UA) NEGATIVE Urine Ketones NEGATIVE Urine Blood SMALL H Urine Nitrite NEGATIVE Urine Bilirubin NEGATIVE Urine Urobilinogen NEGATIVE Ur Leukocyte Esterase NEGATIVE Urine WBC (Auto) 1 Urine RBC (Auto) 2 Squamous Epi Cells Auto <1 Urine Mucus (Auto) OCC Urine Ascorbic Acid NEGATIVE Abdomen/Pelvis CT 06/25/18 00:00 IMPRESSION: Probable proximal sigmoid colon diverticulitis. Consider colonoscopy to exclude underlying neoplasm. This is a well-appearing male in no acute distress. CT scan positive for sigmoid colon diverticulitis. This would go along with my exam and his history. Started on Cipro and Flagyl. Will DC at this time in stable condition with warning signs to return if symptoms are getting worse as he could have an abscess develop. Patient verbalizes understanding of these instructions. Also advised that he get a colonoscopy soon if he has not had this recently. - Vital Signs Vital signs: Temp Pulse Resp BP Pulse Ox 98.4 F 87 16 137/77 H 98 06/25/18 22:13 06/25/18 16:37 06/25/18 16:37 06/25/18 22:13 06/25/18 22:13 - Laboratory Result Diagrams: 06/25/18 20:41 06/25/18 20:41 Laboratory results interpreted by me: 06/25/18 06/25/18 06/25/18 20:41 20:41 20:44 RDW 14.8 H AST 15 L Urine Blood SMALL H Discharge - Discharge Clinical Impression: Sigmoid diverticulitis Condition: Good Disposition: HOME, SELF-CARE Instructions: Diverticulitis ([facility]) Additional Instructions: You do have diverticulitis. There does not appear to be a large abscess or perforation however sometimes diverticulitis can progress to worsening infection. In the event that you begin to get worse over the next 24-48 hours especially if you begin running fevers, the pain is getting worse and you are unable to take your medications it should be noted you should return immediately. Please follow-up with your doctor after treatment is complete. Often times the colonoscopy will need to be performed to exclude other worsening pathology such as malignancies. Prescriptions: Ciprofloxacin HCl [Cipro 500 mg Tablet] 500 mg PO BID 10 Days #20 tablet Metronidazole [Flagyl 500 mg Tablet] 500 mg PO Q6H 10 Days #40 tablet Ondansetron [Zofran Odt 4 mg Tablet] 1 - 2 tab PO Q4H PRN #15 tab.rapdis PRN Reason: For Nausea/Vomiting Referrals: SANIA XIONG MD [Primary Care Provider] - Follow up as needed
== END 2018-06-26 00:41 | disposition home or self-care (01) ==
LOC: ER 16:28
DX: K57.32 Diverticulitis of large intestine without perforation or abscess without bleeding (principal); R10.9 Unspecified abdominal pain; I10 Essential (primary) hypertension; Z88.2 Allergy status to sulfonamides
CPT/HCPCS: 36415; 74177; 80053; 81001; 83690; 85025; 99284

== ENCOUNTER 2018-07-24 11:44 | Emergency (ER) | payer OTHER ==
[2018-07-24] MEDS ORDERED: NORMAL SALINE 1000 ML 1,000 ML IV ONE (13:38)
--- NOTE | 2018-07-24 13:38 | ER Document Report ---
ED Medical Screen (RME) - General Chief Complaint: Constipation Stated Complaint: ABDOMINAL PAIN Time Seen by Provider: 07/24/18 13:27 Primary Care Provider: SANIA XIONG MD [Primary Care Provider] - Follow up as needed Notes: Patient is a 57-year-old male that presents to the emergency department for chief complaint of left lower quadrant abdominal pain and constipation. Patient had history of diverticulitis, most recent flare was 24 days ago, he was admitted at that time and discharged home on antibiotics, he went to the [place] and he was prescribed a different round of antibiotics without improvement of his s ymptoms, he states that the pain is been worse so he decided come back to the emergency department.. ROS: Other than noted above, the 12 point review of systems was reviewed with the patient and were negative, all pertinent findings are included in the HPI. PHYSICAL EXAMINATION: Vital signs reviewed. GENERAL: Well-appearing, well-nourished and in no acute distress. HEAD: Atraumatic, normocephalic. EYES: Pupils equal round extraocular movements intact, conjunctiva are normal. ENT: Nares patent NECK: Normal range of motion CV: Heart regular rate and rhythm LUNGS: No respiratory distress Abdomen: Left lower quadrant tenderness to palpation Musculoskeletal: Normal range of motion NEUROLOGICAL: Normal speech PSYCH: Normal mood, normal affect. MDM: Patient seen and examined for rapid initial assessment. Vital signs reviewed. A comprehensive ED assessment and evaluation of the patient, analysis of test results and completion of the medical decision making process will be conducted by additional ED providers. *Note is created using voice recognition software and may contain spelling, syntax or grammatical errors. TRAVEL OUTSIDE OF THE [place] IN LAST 30 DAYS: No - Related Data Allergies/Adverse Reactions: lisinopril Allergy (Severe, Verified 07/24/18 11:51) Angioneurotic Edema Sulfa (Sulfonamide Antibiotics) Allergy (Verified 07/24/18 11:51) Past Medical History - Social History Family history: None - Past Medical History Cardiac Medical History: Reports: Hx Hypertension Pulmonary Medical History: Reports: Hx Sleep Apnea Renal/ Medical History: Denies: Hx Peritoneal Dialysis GI Medical History: Reports: Hx Diverticulitis Musculoskeltal Medical History: Reports Hx Arthritis Psychiatric Medical History: Denies: Hx Depression Past Surgical History: Reports: Hx Nose Surgery - Multiple sinus surgeries, Hx Oral Surgery - Multiple jaw surgeries to correct his bite, Other - Multiple hernia surgeries - Immunizations Immunizations up to date: Yes Physical Exam - Vital signs Vitals: Temp Pulse Resp BP Pulse Ox 98.2 F 66 18 148/81 H 98 07/24/18 12:06 07/24/18 12:06 07/24/18 12:06 07/24/18 12:06 07/24/18 12:06 Course - Vital Signs Vital signs: Temp Pulse Resp BP Pulse Ox 98.2 F 66 18 148/81 H 98 07/24/18 12:06 07/24/18 12:06 07/24/18 12:06 07/24/18 12:06 07/24/18 12:06 Doctor's Discharge - Discharge Referrals: SANIA XIONG MD [Primary Care Provider] - Follow up as needed
[2018-07-24] MEDS ORDERED: FENTANYL CITRATE INJ/PF 100 MCG/2 ML AMPUL IV ONE ×2 (13:39→15:42)
[2018-07-24] MEDS ORDERED: ONDANSETRON HCL INJ/PF 4 MG/2 ML SDV IV ONE (13:39)
[2018-07-24 14:36] LABS: ABSOLUTE BASOPHILS # (AUTO) 0.1 10^3/uL (0.0-0.2); ABSOLUTE EOSINOPHILS # (AUTO) 0.2 10^3/uL (0.0-0.6); ABSOLUTE LYMPHOCYTES (AUTO) 2.3 10^3/uL (0.5-4.7); ABSOLUTE MONOCYTES (AUTO) 0.8 10^3/uL (0.1-1.4); BASOPHILS % (AUTO) 0.7 % (0-2); EOSINOPHILS % (AUTO) 2.1 % (0-6); HEMATOCRIT 41.7 % (37.9-51.0); HEMOGLOBIN 13.9 g/dL (13.5-17.0); MEAN CORPUSCULAR HEMOGLOBIN 27.5 pg (27.0-33.4); MEAN CORPUSCULAR HGB CONC 33.3 g/dL (32.0-36.0); MEAN CORPUSCULAR VOLUME 83 fl (80-97); MONOCYTES % (AUTO) 8.1 % (3-13); PLATELET COUNT 248 10^3/uL (150-450); RED BLOOD COUNT 5.05 10^6/uL (4.35-5.55); RED CELL DISTRIBUTION WIDTH 14.6 % (11.5-14.0); SEGMENTED NEUTROPHILS % (AUTO) 67.1 % (42-78); TOTAL CELLS COUNTED % (AUTO) 100 %; WHITE BLOOD COUNT 10.4 10^3/uL (4.0-10.5)
[2018-07-24 14:43] LABS: ALANINE AMINOTRANSFERASE 23 U/L (21-72); ALBUMIN 4.1 g/dL (3.5-5.0); ALKALINE PHOSPHATASE 62 U/L (38-126); ANION GAP 8 (5-19); ASPARTATE AMINO TRANSFERASE 20 U/L (17-59); BILIRUBIN,DIRECT 0.3 mg/dL (0.0-0.4); BILIRUBIN,TOTAL 0.9 mg/dL (0.2-1.3); BLOOD UREA NITROGEN 15 mg/dL (7-20); CALCIUM 9.6 mg/dL (8.4-10.2); CARBON DIOXIDE 32 mmol/L (22-30); CHLORIDE 98 mmol/L (98-107); GLUCOSE 95 mg/dL (75-110); LIPASE 30.1 U/L (23-300); POTASSIUM 5.4 mmol/L (3.6-5.0); SODIUM 138.4 mmol/L (137-145); TOTAL PROTEIN 7.5 g/dL (6.3-8.2)
--- NOTE | 2018-07-24 14:57 | ER Document Report ---
ED General - General Chief Complaint: Constipation Stated Complaint: ABDOMINAL PAIN Time Seen by Provider: 07/24/18 13:27 Primary Care Provider: SANIA XIONG MD [Primary Care Provider] - Follow up as needed Notes: Very pleasant 57-year-old male that presents to the emergency department for chief complaint of left lower quadrant abdominal pain and constipation. Patient had history of diverticulitis, most recent flare was 24 days ago, he was admitted at that time and discharged home on antibiotics. He went to the [place] after having persistent symptoms and what is considered failed treatment and he was prescribed a different round of antibiotics without improvement of his symptoms. He completed his second course of antibiotics on Monday. HE states that the pain is been worse so he decided come back to the emergency department. He denies fevers but complains of being cold, complains of nausea this morning, complained of sweats, denies shortness of breath or chest pain, denies vomiting, complains of left lower quadrant and suprapubic abdominal pain, complains of constipation and believes his last bowel movement was 4-5 days ago, he is passing gas, complains of dysuria for about a week. He has no other complaints. TRAVEL OUTSIDE OF THE [place] IN LAST 30 DAYS: No - Related Data Allergies/Adverse Reactions: lisinopril Allergy (Severe, Verified 07/24/18 11:51) Angioneurotic Edema Sulfa (Sulfonamide Antibiotics) Allergy (Verified 07/24/18 11:51) Past Medical History - Social History Smoking Status: Unknown if Ever Smoked Family History: Reviewed & Not Pertinent, Other - Does not know patient adopted Patient has suicidal ideation: No Patient has homicidal ideation: No - Past Medical History Cardiac Medical History: Reports: Hx Hypertension Pulmonary Medical History: Reports: Hx Sleep Apnea Renal/ Medical History: Denies: Hx Peritoneal Dialysis GI Medical History: Reports: Hx Diverticulitis Musculoskeletal Medical History: Reports Hx Arthritis Psychiatric Medical History: Denies: Hx Depression Past Surgical History: Reports: Hx Nose Surgery - Multiple sinus surgeries, Hx Oral Surgery - Multiple jaw surgeries to correct his bite, Other - Multiple hernia surgeries - Immunizations Immunizations up to date: Yes Review of Systems - Review of Systems Constitutional: See HPI EENT: No symptoms reported Cardiovascular: See HPI Respiratory: See HPI Gastrointestinal: See HPI Genitourinary: See HPI Male Genitourinary: No symptoms reported Musculoskeletal: No symptoms reported Skin: No symptoms reported Hematologic/Lymphatic: No symptoms reported Neurological/Psychological: No symptoms reported Physical Exam - Vital signs Vitals: Temp Pulse Resp BP Pulse Ox 98.2 F 66 18 148/81 H 98 07/24/18 12:06 07/24/18 12:06 07/24/18 12:06 07/24/18 12:06 07/24/18 12:06 - Notes Notes: PHYSICAL EXAMINATION: Reviewed vital signs and charting by RN GENERAL: Alert, interacts well. No acute distress. HEAD: Normocephalic, atraumatic. EYES: Pupils equal, round. Extraocular movements intact. ENT: Oral mucosa moist, tongue midline. LUNGS: Clear to auscultation bilaterally, no wheezes, rales, or rhonchi. No re spiratory distress. HEART: Regular rate and rhythm. No murmur ABDOMEN: soft, tender to palpation left lower quadrant suprapubic area. Non- distended. Bowel sounds present. no McBurney's point tenderness, no Espinosa sign. EXTREMITIES: Moves all 4 extremities spontaneously. No edema, No cyanosis. PSYCH: Normal affect, normal mood. SKIN: Warm, dry, normal turgor. No rashes or lesions noted. Course - Re-evaluation Re-evalutation: 07/24/18 15:01 Overall appears well and nontoxic. Afebrile. Patient with 2 failed courses of treatment for diverticulitis. CT abdomen pelvis with IV contrast ordered. Lab work still pending. 07/24/18 16:10 CT abdomen/pelvis with IV contrast showed no interval changes from previous, no evidence of abscess, no evidence of perforation, but no improvement. Patient does not have a leukocytosis or fever. Patient is overall nontoxic and appears well, not septic. I will refer him to a surgeon and try Augmentin and Flagyl combination. This point there is nothing concerning for admission to the [facility]. - Vital Signs Vital signs: Temp Pulse Resp BP Pulse Ox 98.2 F 66 18 148/81 H 98 07/24/18 12:06 07/24/18 12:06 07/24/18 12:06 07/24/18 12:06 07/24/18 12:06 - Laboratory Result Diagrams: 07/24/18 13:45 07/24/18 13:45 Laboratory results interpreted by me: 07/24/18 07/24/18 07/24/18 13:45 13:45 14:40 RDW 14.6 H Potassium 5.4 H Carbon Dioxide 32 H Lactic Acid 0.6 L Discharge - Discharge Clinical Impression: Diverticulitis Condition: Good Disposition: HOME, SELF-CARE Instructions: Abdominal Pain ([facility]), Diverticulitis ([facility]) Additional Instructions: You are seen in the emergency department this afternoon for diverticulitis and failed outpatient therapy. Your lab work was all normal and there was no evidence that you were septic. Your CT scan showed no interval change from the previous one. This is all very reassuring as we were concerned that you may be developing an abscess. This is not the case. We are going to change her antibiotics and put you on medication called Augmentin and then Flagyl again which you were on previously. If you do not see improvement in the next 3-4 days of being on antibiotics it is appropriate to return to the ED. I am also referring you to a surgeon to the other options if this does not get better. If you develop high fever, severe intractable abdominal pain, bloody vomiting or diarrhea, or your symptoms do not improve after being on antibiotics for 2-3 days please immediately return to the emergency department. Referrals: SANIA XIONG MD [Primary Care Provider] - Follow up as needed JUNO DEVINE MD [ACTIVE STAFF] - 07/30/18
[2018-07-24 15:00] LABS: APPEARANCE,URINE CLEAR; BILIRUBIN,URINE NEGATIVE (NEGATIVE); COLOR,URINE YELLOW; GLUCOSE, URINE NEGATIVE (NEGATIVE); KETONES,URINE NEGATIVE (NEGATIVE); LEUKOCYTE ESTERASE,URINE NEGATIVE (NEGATIVE); NITRITE,URINE NEGATIVE (NEGATIVE); PROTEIN,URINE NEGATIVE (NEGATIVE); URINE SPECIFIC GRAVITY 1.014; UROBILINOGEN,URINE NEGATIVE mg/dL (<2.0)
[2018-07-24 15:08] LABS: ADD MANUAL MICROSCOPIC YES
--- NOTE | 2018-07-24 15:42 | RADIOLOGY REPORT (SQ) ---
EXAM DESCRIPTION: CT ABD/PELVIS WITH IV ONLY COMPLETED DATE/TIME: 07/24/2018 3:27 pm REASON FOR STUDY: llq abdominal pain, hx diverticulitis COMPARISON: 06/25/2018 TECHNIQUE: CT scan of the abdomen and pelvis performed using helical scanning technique with dynamic intravenous contrast injection. No oral contrast. Images reviewed with lung, soft tissue, and bone windows. Reconstructed coronal and sagittal MPR images reviewed. Delayed images for evaluation of the urinary system also acquired. All images stored on PACS. All CT scanners at this facility use dose modulation, iterative reconstruction, and/or weight based d osing when appropriate to reduce radiation dose to as low as reasonably achievable (ALARA). [facility]: Dose Right [facility]: CareDose [facility]: Dose Right [facility]: Teradose 4D [facility]: Eutechnyx CONTRAST TYPE AND DOSE: contrast/concentration: Isovue 350.00 mg/ml; Total Contrast Delivered: 100.0 ml; Total Saline Delivered: 55.8 ml100 mL Omnipaque 350 iodinated contrast IV RENAL FUNCTION: GFR > 60. RADIATION DOSE: CT Rad equipment meets quality standard of care and radiation dose reduction techniq ues were employed. CTDIvol: 20.4 - 20.9 mGy. DLP: 2327 mGy-cm.. LIMITATIONS: None. FINDINGS: LOWER CHEST: No significant findings. No nodules or infiltrates. LIVER: Normal size. No masses. No dilated ducts. SPLEEN: Normal size. No focal lesions. PANCREAS: No masses. No significant calcifications. No adjacent inflammation or peripancreatic fluid collections. Pancreatic duct not dilated. GALLBLADDER: No identified stones by CT criteria. No inflammatory changes to suggest cholecystitis. ADRENAL GLANDS: No significant masses or asymmetry. RIGHT KIDNEY AND URETER: No solid masses. No significant calcifications. No hydronephrosis or hyd roureter. LEFT KIDNEY AND URETER: No solid masses. No significant calcifications. No hydronephrosis or hydr oureter. AORTA AND VESSELS: No aneurysm. No dissection. Renal arteries, SMA, celiac without stenosis. RETROPERITONEUM: No retroperitoneal adenopathy, hemorrhage or masses. BOWEL AND PERITONEAL CAVITY: No significant change in extensive thickening and fat stranding about th e mid sigmoid colon with underlying diverticulosis. APPENDIX: Normal. PELVIS: No mass. No free fluid. Normal bladder. ABDOMINAL WALL: No masses. No hernias. BONES: No significant or acute findings. OTHER: No other significant finding. IMPRESSION: No significant change in extensive thickening and fat stranding about the mid sigmoid co gay with underlying diverticulosis, findings consistent with diverticulitis and as seen on prior exam ination dated 06/25/2018. As on prior, consider colonoscopic evaluation to exclude underlying maligna ncy. TECHNICAL DOCUMENTATION: JOB ID: [id number] Quality ID # [id number]: Final reports with documentation of one or more dose reduction techniques (e.g., Au tomated exposure control, adjustment of the mA and/or kV according to patient size, use of iterative reconstruction technique) 2010 [employer]- All Rights Reserved Reading location - IP/workstation name: [id number]
[2018-07-24] MEDS ORDERED: METRONIDAZOLE 500 MG TABLET PO ONE (16:26)
[2018-07-24] MEDS ORDERED: AMOXICILLIN TR/POT CLAVULANATE 500-125 MG TAB PO ONE (16:27)
[2018-07-24 16:53] VITALS: BP 138/82
--- NOTE | 2018-07-24 21:49 | ER Document Report ---
Doctor's Note Notes: I personally and independently obtained patient history and examined the patient in conjunction with the APC and agree with the assessment, treatment plan and disposition of the patient as recorded by the APC, and have reviewed the APC's note. HISTORY OF PRESENT ILLNESS: Patient is a 57-year-old male that presents to the emergency department for chief complaint of left lower quadrant abdominal pain. She was recently diagnosed with diverticular about 1 month ago, was on several rounds of antibiotics, without much relief of his symptoms, and came back to the emergency department today, he states he straining every time he tries to go the bathroom as well and has painful bowel movements. Currently rates his pain as a 6 out of 10. ROS: Constitutional: Negative for fever. Cardiovascular: Negative for chest pain. Respiratory: Negative for shortness of breath. Gastrointestinal: Positive for abdominal pain Musculoskeletal: Negative for arm, leg or back pain Skin: Negative for rash. Neurological: Negative for weakness or numbness. Other than noted above, the 12 point review of systems was reviewed with the patient and were negative, all pertinent findings are included in the HPI. PHYSICAL EXAMINATION: Vital signs reviewed, nursing noted reviewed. GENERAL: Well-appearing, well-nourished and in no acute distress. HEAD: Atraumatic, normocephalic. EYES: Eyes appear normal, conjunctiva are normal. ENT: nares patent, oropharynx clear without exudates. Moist mucous membranes. NECK: Normal range of motion, supple without lymphadenopathy LUNGS: Breath sounds clear to auscultation bilaterally and equal. No wheezes rales or rhonchi. HEART: Regular rate and rhythm without murmurs ABDOMEN: Soft, obese, tenderness to palpation in the left lower quadrant, normoactive bowel sounds. No rebound, guarding, or rigidity. No masses appreciated. EXTREMITIES: Nontender, good range of motion, no pitting or edema. NEUROLOGICAL: No focal neurological deficits. Moves all extremities spontaneously Motor and sensory grossly intact on exam. PSYCH: Normal mood, normal affect. SKIN: Warm, Dry, normal turgor, no rashes or lesions noted on exposed skin MEDICAL DECISION MAKING: Patient seen and examined, vital signs reviewed. On exam the patient did have tenderness in the left lower quadrant, was worked up again for possible recurrence of diverticulitis, repeat CT imaging was obtained as there is concern for possible abscess, and reasoning for why he is on improving with multiple courses of antibiotics. Blood work was reviewed, no leukocytosis, CT imaging demonstrated consistent and persistent inflammation of the colon with associated diverticuli, concerning for diverticulitis, however underlying malignancy cannot be ruled out, he will be referred to a general surgeon, given that his symptoms are not improving over the past month despite antibiotic regimens, will place him on Augmentin and Flagyl this time around, and follow-up. Please review detail APC documentation. *Note is created using voice recognition software and may contain spelling, syntax or grammatical errors.
== END 2018-07-24 16:55 | disposition home or self-care (01) ==
LOC: ER 11:44
DX: K57.92 Diverticulitis of intestine, part unspecified, without perforation or abscess without bleeding (principal); R10.32 Left lower quadrant pain; K59.00 Constipation, unspecified; I10 Essential (primary) hypertension
CPT/HCPCS: 96376; 99284; 96361; 96374; 96375; 36415; 83690; 85025; 80053; 81001; 83605; 74177; J3010; J2405; J7030